=== PATIENT | male | born 1940 | race Caucasian/White ===

== ENCOUNTER 2016-10-21 12:12 | Emergency (ER) | payer OTHER ==
[~2016-10-21] VITALS: Ht 172.7 cm; Wt 74.1 kg
[2016-10-21 16:00] LABS: HEMATOCRIT 47.9 % (38.0-50.0); MCH 29.6 PG (29.0-34.0); MCHC 33.6 G/DL (30.0-36.0); MCV 88.1 FL (86-99); PLATELET COUNT 224 K/uL (156-360); RBC DIS.WIDTH-CV 13.2 % (11.8-14.6); RBC DIS.WIDTH-SD 42.5 % (39-53); RED BLOOD COUNT 5.44 M/uL (4.00-5.50); WHITE BLOOD COUNT 8.8 K/uL (4.1-10.2)
[2016-10-21 16:13] LABS: CHLORIDE 108 mEq/L (99-109); SODIUM 142 mEq/L (136-147)
[2016-10-21 16:14] LABS: GLUCOSE 90 mg/dL (70-99)
[2016-10-21 16:16] LABS: ANION GAP 10 MEQ/L (2-14)
[2016-10-21 16:18] LABS: GFR ESTIMATE (CALCULATED) > 59 mL/min/
[2016-10-21 16:19] LABS: UREA NITROGEN (BUN) 22 mg/dL (9-23)
[2016-10-21 16:23] LABS: TROP-I INTERPRETATION NEGATIVE; TROPONIN-I < 0.01 ng/mL (0.0-0.30)
[2016-10-21 17:23] LABS: TROP-I INTERPRETATION NEGATIVE; TROPONIN-I < 0.01 ng/mL (0.0-0.30)
[2016-10-21 18:07] VITALS: BP 144/81
== END 2016-10-21 18:08 | disposition home or self-care (01) ==
LOC: EME 12:12
PROVIDERS: Emergency Medicine
DX: R07.89 Other chest pain (principal); S46.912A Strain of unspecified muscle, fascia and tendon at shoulder and upper arm level, left arm, initial encounter; X50.9XXA Other and unspecified overexertion or strenuous movements or postures, initial encounter
CPT/HCPCS: 73030; 80048; 84484; 85027; 93005; 99281; 99284